=== PATIENT | male | born 1990 | race Caucasian/White ===

== ENCOUNTER 2016-11-21 09:35 | Emergency (ER) | payer SELFPAY | END 2016-11-21 10:52 | disposition home or self-care (01) | LOC: D.ER 09:35 | DX: K02.9 Dental caries, unspecified (principal); K08.89 Other specified disorders of teeth and supporting structures; K05.10 Chronic gingivitis, plaque induced; R68.84 Jaw pain; R22.9 Localized swelling, mass and lump, unspecified ==